=== PATIENT | male | born 1970 | race Caucasian/White ===

== ENCOUNTER → 2020-07-15 | Outpatient (CLI) | payer SELFPAY | LOC: M LABSMTC 10:26 | PROVIDERS: ATTEND Pediatrics | DX: Z20.822 Contact with and (suspected) exposure to COVID-19 (principal) ==

== ENCOUNTER → 2020-10-05 | Outpatient (REF) | payer OTHER | LOC: M LAB REF 21:14 | PROVIDERS: ATTEND Physician Assistant | DX: Z20.828 Contact with and (suspected) exposure to other viral communicable diseases (principal) ==

== ENCOUNTER 2024-05-07 11:00 | Day surgery (SDC) | payer OTHER ==
[~2024-05-07] VITALS: Ht 167.6 cm; Wt 95.3 kg
[~2024-05-07 11:00] MED LIST: LISI20TA33 PO; NS 250 ML IV ONE; SEMA0.5P SC; THERTAB52 PO; VITA100017 PO
[2024-05-07] MEDS ORDERED: LIDOCAINE 2% 100MG/5ML SDV (FOR ANES.) As Ordered ONE (11:51)
[2024-05-07] MEDS ORDERED: propofoL 200 MG/20 ML VIAL As Ordered ONE (11:51)
[2024-05-07 12:12] VITALS: TEMP 98.3
[2024-05-07 12:31] VITALS: BP 135/79; O2SAT 97
== END 2024-05-07 12:35 | disposition home or self-care (01) ==
LOC: M OPP 11:00
PROVIDERS: ATTEND Internal Medicine Gastroenterology
DX: Z12.11 Encounter for screening for malignant neoplasm of colon (principal); Z12.12 Encounter for screening for malignant neoplasm of rectum; K64.0 First degree hemorrhoids; K57.30 Diverticulosis of large intestine without perforation or abscess without bleeding; I10 Essential (primary) hypertension; Z79.899 Other long term (current) drug therapy